=== PATIENT | female | born 1950 | race Caucasian/White ===

== ENCOUNTER 2017-06-10 13:00 | Inpatient (IN) ==
[2017-06-10 17:37] LABS: Blood Urea Nitrogen 21 mg/dl (8-23)
[2017-06-10 17:45] LABS: Appearance,Urine HAZY; Bacteria,Urine 0 /hpf (0); Bilirubin,Urine NEG (NEG); Color,Urine AMBER; Glucose,Urine (UA) NEGATIVE (NEG); Leukocyte Esterase,Urine 250 /uL (NEG); Mucus,Urine MANY /hpf (0); Nitrate,Urine NEG (NEG); Protein,Urine NEG (NEG); Specific Gravity,Urine 1.026 (1.000-1.035); Urine Blood NEG mg/dL (<0.03); Urine Hyaline Cast 20 /lpf (0-2); Urine RBC 2 /hpf (0-1); Urine Squamous Epithelial Cell 4 /hpf (0-4); Urine Transitional Epi Cells 1 /hpf (0-2); Urine WBC 3 /hpf (0-4); Urobilinogen,Urine NEG (NEG)
[2017-06-10 17:45] LABS: Basophils # (Auto) 0.1 K/mcL (0.0-0.3); Basophils % (Auto) 0.5 % (0.0-2.0); Eosinophils # (Auto) 0.1 K/mcL (0.0-0.7); Eosinophils % (Auto) 1.2 % (0.0-7.0); Granulocytes % (Auto) 66.6 % (38.0-78.0); Lymphocytes # (Auto) 2.6 K/mcL (1.5-4.8); Lymphocytes % (Auto) 25.8 % (15.5-49.0); Mean Cell Volume 88.4 fL (80.0-100.0); Mean Corpuscular Hemoglobin 29.1 pg (26.0-34.0); Monocytes # (Auto) 0.6 K/mcL (0.1-0.9); Monocytes % (Auto) 5.9 % (1.0-12.0); Platelet Count 415 K/mcL (140-440); Red Cell Distribution Width 14.1 % (11.5-14.5)
[2017-06-15] MEDS ORDERED: PREGABALIN 75 MG CAPSULE PO SCH (05:00)
[2017-06-15] MEDS ORDERED: oxyCODONE 10 MG TAB.ER.12H PO SCH (05:00)
[2017-06-15] MEDS ORDERED: ceFAZolin 1 GM VIAL IV SCH (05:00)
[2017-06-15] MEDS ORDERED: ACETAMINOPHEN 500 MG TABLET PO SCH (05:00)
[2017-06-15] MEDS ORDERED: CELECOXIB 200 MG CAPSULE PO SCH (05:00)
[2017-06-15] MEDS ORDERED: KETOROLAC 30 MG, ROPIVACAINE HCL/PF 49.5 ML, EPINEPHrine 0.5 MG, 0.9 % SODIUM CHLORIDE ... IJ ONE (06:54)
[2017-06-15] MEDS ORDERED: PROPOFOL 200 MG/20 ML VIAL IV ONE (09:35)
[2017-06-15] MEDS ORDERED: PHENYLEPHRINE 10 MG/ML VIAL IV ONE (09:35)
[2017-06-15] MEDS ORDERED: ROPIVACAINE HCL/PF 30 ML VIAL IJ ONE (09:35)
[2017-06-15] MEDS ORDERED: MIDAZOLAM 2 MG/2 ML VIAL IV ONE (09:35)
[2017-06-15] MEDS ORDERED: ROCURONIUM 10 MG/ML ML IV ONE (09:35)
[2017-06-15] MEDS ORDERED: LIDOCAINE HCL/PF 100 MG/5 ML SYRINGE IV ONE (09:35)
[2017-06-15] MEDS ORDERED: ONDANSETRON 4 MG/2 ML VIAL IV ONE (09:35)
[2017-06-15] MEDS ORDERED: ePHEDrine 50 MG/ML AMPUL IV ONE (09:35)
[2017-06-15] MEDS ORDERED: TRANEXAMIC ACID 1,000 MG/10 ML VIAL IV ONE ×2 (09:35→11:04)
[2017-06-15] MEDS ORDERED: SUCCINYLCHOLINE 20 MG/ML ML IV ONE (09:35)
[2017-06-15] MEDS ORDERED: GENTAMICIN SULFATE 800 MG/20 ML VIAL IR ONE (10:08)
[2017-06-15] MEDS ORDERED: METOPROLOL TARTRATE 5 MG/5 ML VIAL IV PRN (10:40)
[2017-06-15] MEDS ORDERED: HYDROmorphone 2 MG/ML SYRINGE IV PRN ×2 (10:40→11:04)
[2017-06-15] MEDS ORDERED: ATROPINE SULFATE 0.4 MG/ML VIAL IV PRN (10:40)
[2017-06-15] MEDS ORDERED: METHOCARBAMOL 1,000 MG/10 ML VIAL IV PRN (10:40)
[2017-06-15] MEDS ORDERED: diphenhydrAMINE 50 MG/ML VIAL IV PRN (10:40)
[2017-06-15] MEDS ORDERED: ePHEDrine 50 MG/ML AMPUL IV PRN (10:40)
[2017-06-15] MEDS ORDERED: BENZOCAINE/MENTHOL 1 LOZENGE PO PRN ×2 (10:40→11:04)
[2017-06-15] MEDS ORDERED: IPRATROPIUM/ALBUTEROL 3 ML AMPUL.NEB NEB PRN (10:40)
[2017-06-15] MEDS ORDERED: MEPERIDINE 25 MG/ML SYRINGE IV PRN (10:40)
[2017-06-15] MEDS ORDERED: ONDANSETRON 4 MG/2 ML VIAL IV PRN ×2 (10:40→11:04)
[2017-06-15] MEDS ORDERED: NALOXONE HCL 0.4 MG/ML VIAL IV PRN (10:40)
[2017-06-15] MEDS ORDERED: FLUMAZENIL 0.1 MG/ML ML IV PRN (10:40)
[2017-06-15] MEDS ORDERED: LACTATED RINGERS 1,000 ML IV SCH (10:45)
[2017-06-15] MEDS ORDERED: ACETAMINOPHEN 325 MG TABLET PO PRN (11:04)
[2017-06-15] MEDS ORDERED: BISACODYL 10 MG SUPP.RECT PR PRN (11:04)
[2017-06-15] MEDS ORDERED: MAGNESIUM HYDROXIDE 30 ML ORAL.SUSP PO PRN (11:04)
[2017-06-15] MEDS ORDERED: POLYETHYLENE GLYCOL 3350 17 GM PACKET PO PRN (11:04)
[2017-06-15] MEDS ORDERED: TEMAZEPAM 15 MG CAPSULE PO PRN (11:04)
[2017-06-15] MEDS ORDERED: FLEETS ADULT ENEMA PR PRN (11:04)
--- NOTE | 2017-06-15 11:14 | Brief Operative Note ---
Date of procedure: 06/15/17 Pre-op diagnosis: Right knee djd Post-op diagnosis: same Procedure: Right TKA Grafts/Implants: Yes Anesthesia: GETA Complications: none Complications Description: 06/15/17 11:14 none Surgeon: Augie Peralta Program Trainer: Adam Acharya Estimated blood loss (cc): 50 Tourniquet Time (Minutes): 54 Specimens Removed/Pathology: none sent Condition: stable Disposition: PACU
[2017-06-15] MEDS: fentaNYL 100 MCG/2 ML VIAL IV PRN ×3 (11:45→12:02)
--- NOTE | 2017-06-15 12:01 | XRay Report ---
HISTORY: Reason for Exam:Post-Op Total Knee FINDINGS: There is well positioned total knee prosthesis. A 4 mm bone chip is seen along the outer border of the medial tibial plateau. There is another 4 mm bone chip seen along the posterior inferior margin of the patella. IMPRESSION: Well-positioned total knee prosthesis Interpreted and Authenticated by: Scar Colvin 06/15/17
[2017-06-15] MEDS: 0.45 % SODIUM CHLORIDE 1,000 ML IV SCH ×2 (12:27→23:05)
[2017-06-15] MEDS: KETOROLAC 15 MG/ML VIAL IV SCH ×3 (13:00→23:05)
[2017-06-15] MEDS: 0.9 % SODIUM CHLORIDE 10 ML SYRINGE IV SCH ×2 (14:12→22:31)
[2017-06-15] MEDS: ceFAZolin 1 GM VIAL IV SCH ×2 (14:19→22:29)
[2017-06-15] MEDS: DULoxetine 30 MG CAPSULE PO SCH ×2 (15:03→22:31)
[2017-06-15] MEDS: HYDROcodone/APAP 10/325MG TABLET PO PRN ×3 (17:07→22:30)
[2017-06-15] MEDS: ASPIRIN 325 MG ENTERIC COATED TABLET PO SCH (22:31)
[2017-06-15] MEDS: DOCUSATE SODIUM 100 MG CAPSULE PO SCH (22:41)
[2017-06-15] MEDS: SENNOSIDES 1 TABLET PO SCH (22:41)
[2017-06-16] MEDS: KETOROLAC 15 MG/ML VIAL IV SCH ×3 (05:05→17:53)
[2017-06-16] MEDS: HYDROcodone/APAP 10/325MG TABLET PO PRN ×5 (05:08→21:59)
--- NOTE | 2017-06-16 07:10 | Orthopedic Progress Note ---
Subjective Patient information: Note initiated : 06/16/17 at 7:09 am Service Date, if different from initiated Date: [] Patient: Mira Hearn 66 y/o F admitted on 06/15/17 for Right Robotic Knee. Chief Complaint: [Pt is stable this morning on post operative day 1 without any significant concerns or complaints. Patients vital signs have remained stable. Patients dressing is dry and exhibits a grossly intact neurovascular and neuromotor exam. Patients 10 point ROS is otherwise negative. ] Objective Vital signs: Vital Signs Temp Pulse Resp BP BP Pulse Ox 06/16/17 06:59 98.1 F 16 118/73 91 06/16/17 03:03 98.0 F 93 H 14 118/63 92 06/15/17 23:42 98.2 F 94 H 14 126/67 91 06/15/17 20:16 91 06/15/17 20:00 98.6 F 104 H 14 125/72 94 06/15/17 15:05 112/69 93 06/15/17 15:00 93 06/15/17 14:05 107/66 93 06/15/17 13:35 147/74 96 06/15/17 13:05 130/80 93 06/15/17 12:50 97.3 F 136/76 97 06/15/17 12:35 139/74 94 06/15/17 12:33 96 06/15/17 12:20 97.5 F 12 137/84 96 06/15/17 12:13 98.0 F 88 17 125/61 93 06/15/17 12:00 87 16 124/62 93 06/15/17 11:45 87 19 138/65 93 06/15/17 11:30 97.5 F 97 H 16 154/60 97 Intake and Output 06/15/17 06/16/17 06/16/17 21:59 05:59 13:59 Intake Total 1520 / 1520 1350 / 1350 Output Total 353 / 353 550 / 550 Balance 1167 / 1167 800 / 800 Intake: IV 1000 / 1000 Sodium Chloride 0.45% 1, 1000 / 1000 000 ml @ 100 mls/hr IV . Q10H LAURIE Rx#:[id number] Oral 1520 / 1520 350 / 350 Output: Void Amount 350 / 350 550 / 550 # of times incontinent of 3 / 3 urine Other: Meal salad and cake Percent of Meal Consumed 100% Feeding Ability Independent # Voids 1 Weight 207 lb Intake & Output: Intake & Output 06/15/17 06/16/17 06/16/17 21:59 05:59 13:59 Intake Total 1520 / 1520 1350 / 1350 Output Total 353 / 353 550 / 550 Balance 1167 / 1167 800 / 800 Weight 207 lb Intake: IV 1000 / 1000 Sodium Chloride 0.45% 1, 1000 / 1000 000 ml @ 100 mls/hr IV . Q10H LAURIE Rx#:[id number] Oral 1520 / 1520 350 / 350 Output: Void Amount 350 / 350 550 / 550 # of times incontinent of 3 / 3 urine Other: Meal salad and cake Percent of Meal Consumed 100% Feeding Ability Independent # Voids 1 Incision: Yes healing Incision clean and dry: Yes Dressing: Yes clean Weight bearing status: full Neurological exam IM: Yes motor sensory intact, Yes neurovascular intact Extremities exam IM: Yes Foot pink and warm, Yes neurovascular intact - Labs CBC & BMP: 06/16/17 05:25 06/10/17 15:50 Labs: Orthopedic Labs 06/10/17 15:50 PT 13.0 INR 1.0 APTT 28 06/16/17 06/10/17 05:25 15:50 Hgb 13.7 Hct 32.7 L 41.5 Assessment and Plan (1) Hx of total knee arthroplasty Patient has been educated regarding wound care and dressings, follow up recommendations, and medication use. We will f/u with the patient within 2-3 weeks for wound check. Status: Acute
--- NOTE | 2017-06-16 07:13 | Discharge Summary ---
Ortho Discharge - TKA - Patient Instructions Diet: Regular Diet Activity: activity as tolerated, weight bearing as tolerated Total Knee Protocol: For Total Knee: Start ROM GILBERT with stationary bike or rocking chair. Work on gaining full extension of knee. Posterior dislocation precautions provided. Hip abductor strengthening and gait training instructions provided. Apply Cryocuff as instructed. Dressing Care: May shower in 2 days Patient Education: Total Knee Replacement (DC) Additional Instructions: Discharge Instructions: Do the exercises at home that physical therapy gave you. Take your photo ID, insurance cards, and current medication list with you to your first physical therapy appointment. Wear comfortable clothing for your physical therapy. Take your prescription to forklift picker any medication or equipment (such as walker, crutches, toilet riser or C.P.M.) Weight bearing as tolerated. If you have the Aquacel Ag dressing, leave in place for 7 days then remove. If dressing becomes soiled (turns black), remove and use gauze 4x4 dressing and silvasorb ointment and change daily. Keep incision clean and dry. If you have Dermabond (a dressing with a mesh-like appearance), leave open to air. You may start showering on post op day #2. The Dermabond dressing can get wet, do not scrub dressing. Pat dry. To avoid constipation while taking any narcotic pain medication, take an over the counter stool softener/laxative. Use your Cryocuff or ice packs as directed, on for 20 minutes at a time throughout the day. This and elevation will help with pain and swelling. Call your physician for fevers above 100.5 or pain not controlled by medication. Your prescriptions are with your discharge information. Some medications were electronically transmitted to your pharmacy of choice. - Problem Maintenance (1) Hx of total knee arthroplasty Status: Acute - Follow Up Plan Follow Up Appointments: Augie Peralta MD [Physician] - 06/30/17 10:00 am Disposition: Home, Self-Care Prognosis: Good Rehab Potential: Good I certify that the patient requires SNF services: No Overall status at discharge: patient is progressing back to baseline - Orders For Discharge Prescriptions: Aspirin [Ecotrin] 325 mg PO BID #60 Docusate Sodium [Colace] 100 mg PO BID #60 capsule HYDROcodone/APAP 10/325MG [[place] 10/325Mg] 1 - 2 tab PO Q4HP PRN #75 tablet PRN Reason: Pain
[2017-06-16] MEDS: PANTOPRAZOLE 40 MG TABLET PO SCH (07:40)
[2017-06-16] MEDS: 0.9 % SODIUM CHLORIDE 10 ML SYRINGE IV SCH ×3 (07:40→22:02)
[2017-06-16] MEDS: LEVOTHYROXINE 50 MCG TABLET PO SCH (07:41)
[2017-06-16] MEDS: METHOCARBAMOL 750 MG TABLET PO PRN ×2 (07:41→16:07)
[2017-06-16] MEDS: HYDROCHLOROTHIAZIDE 25 MG TABLET PO SCH ×2 (10:08→10:58)
[2017-06-16] MEDS: ASPIRIN 325 MG ENTERIC COATED TABLET PO SCH ×2 (10:08→21:59)
[2017-06-16] MEDS: LISINOPRIL 20 MG TABLET PO SCH (10:09)
[2017-06-16] MEDS: DULoxetine 30 MG CAPSULE PO SCH ×3 (10:09→21:59)
[2017-06-16] MEDS: FERROUS SULFATE 325 MG TABLET PO SCH (10:09)
[2017-06-16] MEDS: VITAMIN D3 5,000 UNIT CAPSULE PO SCH (10:09)
[2017-06-16] MEDS: DOCUSATE SODIUM 100 MG CAPSULE PO SCH ×2 (10:10→22:01)
[2017-06-16] MEDS: SENNOSIDES 1 TABLET PO SCH (22:01)
[2017-06-17] MEDS: KETOROLAC 15 MG/ML VIAL IV SCH ×2 (00:26→05:06)
[2017-06-17] MEDS: HYDROcodone/APAP 10/325MG TABLET PO PRN ×3 (02:38→14:43)
[2017-06-17] MEDS: 0.9 % SODIUM CHLORIDE 10 ML SYRINGE IV SCH (05:06)
[2017-06-17] MEDS: LEVOTHYROXINE 50 MCG TABLET PO SCH (06:00)
[2017-06-17] MEDS: METHOCARBAMOL 750 MG TABLET PO PRN (06:54)
[2017-06-17] MEDS: PANTOPRAZOLE 40 MG TABLET PO SCH (07:00)
--- NOTE | 2017-06-17 07:09 | Orthopedic Progress Note ---
Subjective Patient information: Note initiated : 06/17/17 at 7:08 am Service Date, if different from initiated Date: [] Patient: Mira Hearn 66 y/o F admitted on 06/15/17 for Right Robotic Knee. Chief Complaint: [DOING WELL WITH MINIMAL PAIN Objective Vital signs: Vital Signs Temp Pulse Pulse Resp BP Pulse Ox 06/17/17 03:21 97.4 F 87 20 128/74 91 06/17/17 03:00 91 06/16/17 23:50 98.0 F 87 20 110/61 95 06/16/17 23:00 95 06/16/17 20:00 97.9 F 90 20 118/67 90 06/16/17 19:00 90 06/16/17 16:33 97.7 F 16 122/74 92 06/16/17 15:00 92 06/16/17 12:18 97.6 F 87 16 146/74 92 06/16/17 11:00 92 06/16/17 07:22 92 Intake and Output 06/16/17 06/17/17 06/17/17 21:59 05:59 13:59 Intake Total 800 / 800 800 / 800 855 / 855 Output Total 450 / 450 Balance 800 / 800 350 / 350 855 / 855 Intake: IV 855 / 855 Oral 800 / 800 800 / 800 Output: Void Amount 450 / 450 Other: # Voids 1 # Bowel Movements 3 Weight 208 lb Intake & Output: Intake & Output 06/16/17 06/17/17 06/17/17 21:59 05:59 13:59 Intake Total 800 / 800 800 / 800 855 / 855 Output Total 450 / 450 Balance 800 / 800 350 / 350 855 / 855 Weight 208 lb Intake: IV 855 / 855 Oral 800 / 800 800 / 800 Output: Void Amount 450 / 450 Other: # Voids 1 # Bowel Movements 3 Incision: Yes healing Incision clean and dry: Yes Dressing: Yes clean Weight bearing status: full Neurological exam IM: Yes oriented X3, Yes neurovascular intact Extremities exam IM: Yes Foot pink and warm (DC HOME TODAY WITH HOME HEALTH), Yes neurovascular intact - Labs CBC & BMP: 06/16/17 05:25 06/10/17 15:50 Labs: Orthopedic Labs 06/10/17 15:50 PT 13.0 INR 1.0 APTT 28 06/16/17 06/10/17 05:25 15:50 Hgb 13.7 Hct 32.7 L 41.5
[2017-06-17] MEDS: ASPIRIN 325 MG ENTERIC COATED TABLET PO SCH (08:17)
[2017-06-17] MEDS: DULoxetine 30 MG CAPSULE PO SCH (08:17)
[2017-06-17] MEDS: DOCUSATE SODIUM 100 MG CAPSULE PO SCH (08:17)
[2017-06-17] MEDS: HYDROCHLOROTHIAZIDE 25 MG TABLET PO SCH (08:17)
[2017-06-17] MEDS: VITAMIN D3 5,000 UNIT CAPSULE PO SCH (08:17)
[2017-06-17] MEDS: FERROUS SULFATE 325 MG TABLET PO SCH (08:17)
[2017-06-17] MEDS: LISINOPRIL 20 MG TABLET PO SCH (08:17)
[2017-06-23] MEDS ORDERED: CYANOCOBALAMIN 1,000 MCG/ML VIAL IM SCH (09:00)
--- NOTE | 2017-06-25 10:38 | Operative Note ---
DATE OF OPERATION: 06/15/2017 PREOPERATIVE DIAGNOSIS: Right knee degenerative arthritis. POSTOPERATIVE DIAGNOSIS: Right knee degenerative arthritis. PROCEDURE: Right total knee arthroplasty with a size 3 femoral component, size 3 tibial baseplate, an 11 mm poly insert, 33 mm patellar button. SURGEON: Augie Peralta MD STAFF MIDWIFE: Adam Acharya PA-C ANESTHESIA: General LMA anesthesia. COMPLICATIONS: None. ESTIMATED BLOOD LOSS: About 50 mL TOURNIQUET TIME: 54 minutes. DESCRIPTION OF PROCEDURE: The patient was brought to the operating room and put to sleep with general LMA anesthesia. Once asleep, the patient had the right leg sterilely prepped and draped in the usual sterile fashion. We exsanguinated the leg and tourniquet was inflated to 250 pounds of pressure. We confirmed the operative site. A midline incision was made and then we performed a robotic total knee arthroplasty. All compartments were worn significantly. Spurs were removed. We placed two pins above and below the knee for arrays, 2 Intra-articular pins and registered the bone landmarks, 30 on the femur 30 on the tibia. We then balanced the knee, both at 15 degrees and 90 degrees of flexion. Once complete, I then irrigated thoroughly and then brought in the robot and registered the robot and made our distal femoral cut, and our posterior chamfer cut. We changed the blade. We registered the robot and the femur and made our anterior and posterior chamfer cuts and then anterior chamfer cut. The robot was registered with the tibia. We then made the tibial cut removing the bony fragment and removing remnants of the meniscus and spurs. We set rotation using the robot and then we cemented into place after trialing the size components that we had templated. We trialed the 9 and 11 poly. The 11 was most appropriate giving the 6 degrees of extension and bringing her into 1 or 2 degrees of varus. She started out with 9 degrees of lack of extension and this seemed to be appropriate for her anatomy, 1 mm play. We irrigated thoroughly and cemented into place a 33 mm patellar button. Total thickness before the cut was 23. We cut this to 13 mm and then cemented into place a 33 patellar button. We kept the knee at 45 degrees, closed the mid vastus approach with #1 StrataFix, closed the portals with 4-0 nylon and deflated the tourniquet at 54 minutes. We closed the skin with adhesive closure. Patient tolerated this well without complication. RBH:mary Job ID: [id number] Doc ID: [id number] Augie Peralta MD
== END 2017-06-17 14:56 | disposition home or self-care (01) ==
LOC: MEDSUR 06-15 06:25 → EDSTATUS 06-15 07:30
PROVIDERS: ADMIT Orthopaedic Surgery; ATTEND Orthopaedic Surgery